=== PATIENT | female | born 1995 | race Caucasian/White ===

== ENCOUNTER 2018-04-04 11:05 | Emergency (ER) | payer MEDICAID | END 2018-04-04 13:32 | disposition home or self-care (01) | LOC: FTE 11:05 | DX: L24.0 Irritant contact dermatitis due to detergents (principal) | CPT/HCPCS: 99282; Z7502 ==

== ENCOUNTER 2018-08-27 13:42 | Emergency (ER) | payer MEDICAID ==
[2018-08-27] MEDS: ACETAMINOPHEN 500 MG TAB PO (15:21)
[2018-08-27] MEDS: FAMOTIDINE 20 MG TAB PO (15:21)
[2018-08-27] MEDS: LIDOCAINE/MYLANTA 40 ML BTL PO (15:21)
== END 2018-08-27 16:27 | disposition home or self-care (01) ==
LOC: FTE 13:42
DX: J02.9 Acute pharyngitis, unspecified (principal)
CPT/HCPCS: 87880; 99283

== ENCOUNTER 2018-08-30 18:26 | Emergency (ER) | payer MEDICAID ==
[2018-08-30] MEDS: LORAZEPAM 1 MG TAB PO (21:11)
[2018-08-30] MEDS: ONDANSETRON (ODT) 4 MG TAB ODT (22:59)
== END 2018-08-30 23:11 | disposition home or self-care (01) ==
LOC: FTE 18:26
DX: F41.0 Panic disorder [episodic paroxysmal anxiety] (principal); R11.0 Nausea
CPT/HCPCS: 93005; 99283-25